=== PATIENT | male | born 1950 | race Caucasian/White ===

== ENCOUNTER → 2018-04-06 | Outpatient (CLI) | payer MEDICARE, OTHER ==
[~2018-04-06] MED LIST: APAP500 PO; ASPIR 8181 M1 PO; ASPIR-TRIN325 MG PO; ASPIRIN325 PO; ATORVASTATIN CA40 MG PO; CARDURA XL8 MG PO; COLACE100 MG PO; COREG3.125 MG PO; DILTIAZEM HCL120 M1 PO; EFFIENT10 MG PO; HYDROCODONE-AP1 EAC6 PO; LISINOPRIL5 MG PO; OXYCODONE HCL 55 MG PO; UROXATRAL PO; VITAMIN D1000 UNI1 PO; XARELTO10 MG PO
--- NOTE | 2018-04-06 16:09 | CARDNUC ---
[place] [address] CARDIAC NUCLEAR IMAGING REPORT Name: AARON CATALAN Room: [facility]#: [id number] Admission: 04/06/18 Attend Phys: Yaritza Hercules Discharge: Date of : 46 Date of Service: 04/06/18 1608 Report #: [id number] THIS REPORT FOR: //name// APPROVED REPORT Imaging Protocol: Rest Tc-99m/Stress Tc-99m 1 day Study performed: 04/06/2018 07:45:00 Indication: post stent Patient Location: Out-Patient Stress Tech: Roxy Alford Stress Nurse: Lorene Tellez RN NM Tech:JUAN DAVID Ordoñez Ht: 5 ft 9 in Wt: 159 lbs BSA: 1.87 m2 BMI: 23.47 Medical History Medical History: mi,cad,pci,hyperlipidemia,htn,diabetes Medications: diltiazem Allergies: ampicillin, benicar, effient Cardiac Risk Factors: age, hyperlipidemia,hypertension, diabetes, Previous Cardiac Procedures: pci Exercise History: Physically active Resting Data Rest SPECT myocardial perfusion imaging was performed in supine position 30 minutes following the intravenous injection of 10.5 mCi of Tc-99m Sestamibi. Time of rest injection: 0800 Date: 04/06/2018 Time of rest imagin The images were gated to evaluate regional wall motion and calculate left ventricular ejection fraction. Administration Route: IV Administration Site: Left AC Exercise Stress At peak stress, the patient was injected intravenously with 36.0mCi of Tc-99m Sestamibi. Time of stress injection: 0940 Time of stress imagin Administration Route: IV Administration Site: Left AC Gated Stress SPECT was performed 30 [place] [address] CARDIAC NUCLEAR IMAGING REPORT Name: AARON CATALAN Room: [facility]#: [id number] Admission: 04/06/18 Attend Phys: Yaritza Hercules Discharge: Date of : 46 Date of Service: 04/06/18 1608 Report #: [id number] injection. The images were gated to evaluate regional wall motion and calculate left ventricular ejection fraction. Prone imaging was performed. Stress Test Details Stress Test: Exercise stress testing was performed using a Jasen protocol. HR Max Heart Rate (APMHR): 151 bpm Resting HR: 70 bpm Target HR (85% APMHR): 128 bpm Max HR Achieved: 141 bpm % of APMHR: 93 Recovery HR: 90 bpm HR response to stress: Normal HR response to stress BP Resting BP: 158/90 mmHg Recovery BP: 158/70 mmHg BP response to stress: Abnormal hypertensive response to stress. ECG Resting ECG: Sinus Rhythm, normal EKG Stress ECG: Sinus Tachycardia ST Change: None Arrhythmia: None Recovery ECG: Sinus Rhythm, normal EKG Recovery ST Change: None Recovery Arrhythmia: None Clinical Reason for Termination: Maximal effort Exercise duration: 8 min 07 sec Exercise capacity: 10.16 METs Overall Exercise Capacity for Age: Normal Functional Aerobic Impairment 93% The patient exercised per standard Jasen protocol without significant cardiac symptoms. Stress ECG Conclusion The baseline 12-lead EKG show sinus rhythm without significant ST or T wave abnormality. EKGs obtained during and post exercise showed sinus rhythm and sinus tachycardia with no significant ST or T wave changes [place] [address] CARDIAC NUCLEAR IMAGING REPORT Name: AARON CATALAN Room: [facility]#: [id number] Admission: 04/06/18 Attend Phys: Yaritza Hercules Discharge: Date of : 46 Date of Service: 04/06/18 1608 Report #: [id number] Study Quality Study: Good Artifact: No artifact Study Data At rest, the left ventricular ejection fraction was 67%.. Post stress, the left ventricular ejection was 74%.. TID = 0.84. Perfusion Normal left ventricular perfusion. Wall Motion Normal left ventricular wall motion. Nuclear Conclusion ECG Findings: negative for ischemia Clinical Findings: negative for ischemia Nuclear Findings: negative for ischemia Exercise Capacity: normal Left Ventricular Function: normal Risk Study: low Myocardial perfusion images show no defect to suggest infarct or ischemia. Left ventricular systolic function appears normal on gated studies. This is a low risk study. <Conclusion> The baseline 12-lead EKG show sinus rhythm without significant ST or T wave abnormality. EKGs obtained during and post exercise showed sinus rhythm and sinus tachycardia with no significant ST or T wave changes when compared to baseline. <ELECTRONICALLY SIGNED> By: Lance Joy MD, FACC 04/06/18 1608 1608 1608 Lance Joy MD, FACC /INF
== END ==
LOC: M.NUC 02-06 14:13
DX: I25.10 Atherosclerotic heart disease of native coronary artery without angina pectoris (principal); I21.4 Non-ST elevation (NSTEMI) myocardial infarction; Z95.5 Presence of coronary angioplasty implant and graft

== ENCOUNTER → 2020-04-08 | Outpatient (CLI) | payer MEDICARE, OTHER ==
--- NOTE | 2020-04-08 17:02 | CARDNUC ---
[place] [address] CARDIAC NUCLEAR IMAGING REPORT Name: ALAYNAAARON Room: [facility]#: [id number] Admission: 04/08/20 Attend Phys: Yaritza Hercules Discharge: Date of : 46 Date of Service: 04/08/20 1702 Report #: [id number] THIS REPORT FOR: cc: Kyle Damon MD, Dean L. MD Liston, Michael J. MD [facility] ~ APPROVED REPORT Imaging Protocol: Rest Tc-99m/Stress Tc-99m 1 day Study performed: 04/08/2020 09:30:00 Indication: CAD s/p RI, CAD s/p PCI. Patient Location: Out-Patient Stress Tech: Roxy Alford Stress Nurse: Alexandra Davey RN NM Tech:JUAN DAVID Ordoñez Ht: 5 ft 9 in Wt: 161 lbs BSA: 1.88 m2 BMI: 23.77 Medical History Medical History: CAD s/p RI, CAD s/p stent, Diabetic Noninsulin, HTN, Hyperlipidemia. Medications: ASA 81 Mg, Atorvastatin, Carvedilol, Losartan. Allergies: Ampicillin, Benicar, Effient. Cardiac Risk Factors: Age, Diabetes (non-insulin), HTN, Hyperlipidemia. Previous Cardiac Procedures: Myocardial infarction, PCI. Pretest Chest Pain Characteristics: No chest pain Exercise History: Physically active Physical Disabilities: None noted. Meds Held (24 hrs): Carvedilol. Resting Data Rest SPECT myocardial perfusion imaging was performed in supine position 30 minutes following the intravenous injection of 11.0 mCi of Tc-99m Sestamibi. Time of rest injection: 954 Date: 04/08/2020 The images were gated to evaluate regional wall motion and calculate left ventricular ejection fraction. Administration Route: IV Administration Site: [place] [address] CARDIAC NUCLEAR IMAGING REPORT Name: AARON CATALAN Room: [facility]#: [id number] Admission: 04/08/20 Attend Phys: Yaritza Hercules Discharge: Date of : 46 Date of Service: 04/08/20 1702 Report #: [id number] Exercise Stress At peak stress, the patient was injected intravenously with 32.0mCi of Tc-99m Sestamibi. Time of stress injection: 1144 Date: 04/08/2020 Administration Route: IV Administration Site: Right Hand Gated Stress SPECT was performed 30 minutes after stress injection. The images were gated to evaluate regional wall motion and calculate left ventricular ejection fraction. Prone imaging was performed. Stress Test Details Stress Test: Exercise stress testing was performed using a Jasen protocol. HR Max Heart Rate (APMHR): 149 bpm Resting HR: 67 bpm Target HR (85% APMHR): 126 bpm Max HR Achieved: 136 bpm % of APMHR: 91 Recovery HR: 85 bpm BP Resting BP: 162/96 mmHg Max BP: 214/66 mmHg Recovery BP: 173/86 mmHg ECG Resting ECG: Sinus Rhythm Stress ECG: Sinus Tachycardia ST Change: None Arrhythmia: None Recovery ECG: Sinus Rhythm Recovery ST Change: None Recovery Arrhythmia: None Clinical Reason for Termination: Completed protocol, Maximal effort, Patient Request, Target HR achieved. Stress Symptoms: Dyspnea, Fatigue. Exercise duration: 7 min 31 sec Exercise capacity: 8.44 METs Overall Exercise Capacity for Age: Normal The patient tolerated standard Jasen protocol exercise without significant cardiac [place] [address] CARDIAC NUCLEAR IMAGING REPORT Name: AARON CATALAN Room: [facility]#: [id number] Admission: 04/08/20 Attend Phys: Yaritza Hercules Discharge: Date of : 46 Date of Service: 04/08/20 1702 Report #: [id number] A 69 year old male presented for a Treadmill Nuclear Stress Test r/t s/p NSTEMI, PCI. Treadmill tolerated to stage 3. Recovery unremarkable. Patient was stable and stated he felt good when escorted to Nuclear Medicine for imaging. Stress ECG Conclusion The baseline twelve-lead EKG shows sinus rhythm without significant ST segment or T wave abnormality. EKGs obtained during and post exercise show sinus rhythm and sinus tachycardia with no significant ST segment or T wave changes when compared to baseline. There were no stress-induced arrhythmias. Study Quality Study: Good Artifact: No artifact Study Data At rest, the left ventricular ejection fraction was 70%.. Post stress, the left ventricular ejection was 72%.. TID = 0.87. Perfusion Perfusion images obtained at rest and post exercise stress show uniform uptake of the radioisotope throughout the myocardium. There were no defects to suggest infarct or ischemia. Wall Motion Normal left ventricular wall motion. Nuclear Conclusion ECG Findings: negative for ischemia Clinical Findings: negative for ischemia Nuclear Findings: negative for ischemia Exercise Capacity: normal Left Ventricular Function: normal Risk Study: low Myocardial perfusion images show no defect to suggest infarct or ischemia. Left ventricular systolic function is normal on gated studies. This is a low risk study. <Conclusion> The baseline twelve-lead EKG shows sinus rhythm without significant ST segment or T wave abnormality. EKGs obtained during and post exercise show sinus rhythm and sinus tachycardia [place] [address] CARDIAC NUCLEAR IMAGING REPORT Name: AARON CATALAN Room: [facility]#: [id number] Admission: 04/08/20 Attend Phys: Yaritza Hercules Discharge: Date of : 46 Date of Service: 04/08/20 1702 Report #: [id number] segment or T wave changes when compared to baseline. There were no stress-induced arrhythmias. <ELECTRONICALLY SIGNED> By: Lance Joy MD, FACC 04/08/201701 01 01 Lance Joy MD, FACC /INF
== END ==
LOC: M.NUC 11-12 16:05 → M.CRD 09:00 → M.NUC 09:35
PROVIDERS: ATTEND Internal Medicine
DX: I25.10 Atherosclerotic heart disease of native coronary artery without angina pectoris (principal); E78.00 Pure hypercholesterolemia, unspecified; I10 Essential (primary) hypertension; E11.9 Type 2 diabetes mellitus without complications; Z95.5 Presence of coronary angioplasty implant and graft